=== PATIENT | male | born 1985 | race African-American/Black ===

== ENCOUNTER 2019-11-25 23:49 | Inpatient (IN) | payer OTHER ==
[~2019-11-25] VITALS: Ht 152.4 cm; Wt 56.2 kg
[~2019-11-25 23:49] MED LIST: ASPIRIN 32325 MG/TAB PO; CLARITIN 1010 MG/TAB PO; DECADRON6 MG PO; FLONASEALLERGY NS; KEPPRA750 MG PO; LEXAPRO 10MG10 MG PO; TRUVADA PO; [UNRECOGNIZED DRUG - MIXTURE] TP
[2019-11-26] VITALS (452 sets, daily range): BP systolic 115–1221; BP diastolic 70–95; PULSE 84–97; TEMP 35.7–37.6; O2SAT 73–100
[2019-11-26 00:45] LABS: BASO # 0.1 (0.0-0.2); BASO % 0.4 % (0.0-2.0); EOS # 0.1 (0.0-0.7); EOS % 0.4 % (0-4.0); GRAN # 12.6 (1.4-6.5); GRAN % 83.8 % (42.2-75.2); HEMATOCRIT 40.7 % (42.0-52.0); LYMPH # 1.5 (1.2-3.4); LYMPH % 10.1 % (20.0-51.0); MEAN CELL VOLUME 85 fl (80.0-100.0); MEAN CORPUSCULAR HEMOGLOBIN 29 pg (27.0-31.0); MEAN CORPUSCULAR HGB CONC 34 g/dl (33.0-37.0); MEAN PLATELET VOLUME 9.5 fl (7.4-10.4); MONO # 0.7 (0.1-0.6); MONO % 4.6 % (1.7-9.3); PLATELET COUNT 293 K/mm3 (130-400); RED BLOOD COUNT 4.79 M/mm3 (4.20-5.60); REDCELL DISTRIBUTION WIDTH-CV 14.6 % (11.5-14.5)
[2019-11-26 00:49] LABS: ARTERIAL BLD GAS O2 SATURATION 98.3 % (92-100); ARTERIAL BLD GAS TCO2 CT 25.5; ARTERIAL BLOOD GAS BASE EXCESS -3.4 (-2-2); ARTERIAL BLOOD GAS HCO3 23.9 meq/L (22-26); ARTERIAL BLOOD GAS PCO2 51.5 mmHg (35-45); ARTERIAL BLOOD GAS pH 7.28 (7.35-7.45)
[2019-11-26 00:50] LABS: ARTERIAL BLOOD GAS PO2 136.1 mmHg (80-100)
[2019-11-26 00:56] LABS: ALANINE AMINOTRANSFERASE 31 U/L (4-49); ALBUMIN 4.3 gm/dL (3.5-5.0); ALKALINE PHOSPHATASE 60 U/L (50-136); ANION GAP 11 mmol/L (7-16); AST,SGOT 31 U/L (15-37); BILIRUBIN,TOTAL 0.3 mg/dL (0.0-1.0); BLOOD UREA NITROGEN 12 mg/dL (9-20); CALCIUM 8.8 mg/dL (8.4-10.2); CARBON DIOXIDE 25 mmol/L (22-30); CHLORIDE 104 mmol/L (98-107); CREATINE KINASE 174 U/L (55-170); CREATININE, serum 0.89 (0.66-1.25); GLUCOSE 198 mg/dL (74-106); POTASSIUM 3.9 mmol/L (3.4-5.0); SODIUM 140 mmol/L (137-145); TOTAL PROTEIN 8.8 gm/dL (6.4-8.2)
[2019-11-26 01:06] LABS: INR 1.1 (0.8-3.0); PROTHROMBIN TIME 11.9 SECONDS (9.7-12.8)
[2019-11-26 01:28] LABS: TROPONIN-I < 0.012 ng/mL (0.000-0.035)
[2019-11-26 02:37] LABS: ARTERIAL BLD GAS O2 SATURATION 98.5 % (92-100); ARTERIAL BLD GAS TCO2 CT 30.7; ARTERIAL BLOOD GAS HCO3 27.9 meq/L (22-26)
[2019-11-26 02:38] LABS: ARTERIAL BLOOD GAS PCO2 91.6 mmHg (35-45); ARTERIAL BLOOD GAS PO2 177.9 mmHg (80-100)
[2019-11-26 03:43] LABS: ARTERIAL BLD GAS O2 SATURATION 96.4 % (92-100); ARTERIAL BLD GAS TCO2 CT 35.6; ARTERIAL BLOOD GAS BASE EXCESS -5.7 (-2-2); ARTERIAL BLOOD GAS HCO3 30.9 meq/L (22-26); ARTERIAL BLOOD GAS PO2 115.1 mmHg (80-100)
[2019-11-26 03:44] LABS: ARTERIAL BLOOD GAS pH 6.92 (7.35-7.45)
[2019-11-26 09:22] LABS: ARTERIAL BLD GAS O2 SATURATION 99.7 % (92-100); ARTERIAL BLD GAS TCO2 CT 17.2; ARTERIAL BLOOD GAS BASE EXCESS -7.2 (-2-2); ARTERIAL BLOOD GAS HCO3 16.4 meq/L (22-26); ARTERIAL BLOOD GAS PCO2 28.3 mmHg (35-45); ARTERIAL BLOOD GAS pH 7.38 (7.35-7.45)
[2019-11-26 09:24] LABS: ARTERIAL BLOOD GAS PO2 213.7 mmHg (80-100)
--- NOTE | 2019-11-26 09:46 | NUR ---
The patient is trached and sedated and is on contact precautions. met with the patient's brother, Charlotte Asencio", to discuss discharge plan. Hackberry moved the patient up to [place] from [place] a week ago to live with him, his , and four children. The patient suffered a stroke in September and was in rehab until early October. Hackberry reports that the patient has been independent with ADLs and has a cane, walker, and wheelchair. Hackberry reports that he has not been able to set the patient up with a PCP here yet. The patient is self pay. Hackberry was provided with a FAA application. Financial Counseling was consulted for Medicaid application. The patient remains sedated at this time and is unable to sign forms. Hackberry reports that the patient does have a DPOA-HC completed and that he is the patient's DPOA-HC. Hackberry only had the patient's General DPOA on him. Hackberry contacted his sister and requested that she email the DPOA-HC to . provided Hackberry with this 's email address and phone number. Hackberry reports that the patient is not and does not have any children. He states that the patient has three siblings: him, Rad (ph#[phone]), and Efe. Hackberry plans to return back to the hospital this afternoon to visit the patient. QUIQUE to continue to follow to ensure a safe discharge.
--- NOTE | 2019-11-26 10:39 | NUR ---
SW received the patient's DPOA-HC, via email, from the patient's sister. SW placed the document in the patient's chart. The patient's DPOA-HC is his brother, Marquizes "Fred."
--- NOTE | 2019-11-26 12:39 | NUR ---
PT is currently resting in bed and appears comfortable. Pt tolerating vent via trach well. PTs vitals WNL. Will continue to monitor
[2019-11-26 15:28] LABS: CALCIUM 9.2 mg/dL (8.4-10.2); CREATININE, serum 0.93 (0.66-1.25); POTASSIUM 3.9 mmol/L (3.4-5.0)
--- NOTE | 2019-11-26 15:47 | NUR ---
Dr. Moreau notified of patients current lactic acid levels. Advised to continue with previously ordered IV fluid therapy.
[2019-11-26 15:56] LABS: MAGNESIUM 1.3 mg/dL (1.6-2.3)
--- NOTE | 2019-11-26 19:05 | NUR ---
RECEIVED REPORT FROM RAYNA SCOTT. PT RESTING EASILY ON CURRENT VENT SETTINGS: TV 450, RR 22 FIO2 30%, PEEP 5. RT AT BEDSIDE FOR ABG. BROTHER AT BEDSIDE DURING REPORT AND UPDATED ON STATUS AND POC. VSS. FC PATENT AND DRAINING TO GRAVITY. SEE GTT FLOWSHEET.
--- NOTE | 2019-11-26 19:15 | NUR ---
Report given to RAYNA Wood
[2019-11-26 19:26] LABS: ARTERIAL BLD GAS O2 SATURATION 98.5 % (92-100); ARTERIAL BLD GAS TCO2 CT 20.8; ARTERIAL BLOOD GAS BASE EXCESS -2.4 (-2-2); ARTERIAL BLOOD GAS HCO3 19.9 meq/L (22-26); ARTERIAL BLOOD GAS PCO2 27.9 mmHg (35-45); ARTERIAL BLOOD GAS pH 7.47 (7.35-7.45)
[2019-11-26 19:27] LABS: ARTERIAL BLOOD GAS PO2 134.6 mmHg (80-100)
--- NOTE | 2019-11-26 19:30 | NUR ---
RT AT BEDSIDE DECREASING VENT RR TO 18 AFTER CALLING ABG RESULTS TO DR LUGO.
[2019-11-27] VITALS (970 sets, daily range): BP systolic 119–134; BP diastolic 76–92; PULSE 62–80; TEMP 37.3–37.4; O2SAT 98–100
[2019-11-27 04:59] LABS: BASO % 0.2 % (0.0-2.0); GRAN # 8.7 (1.4-6.5); GRAN % 74.6 % (42.2-75.2); LYMPH # 2.2 (1.2-3.4); LYMPH % 19.2 % (20.0-51.0); MEAN CELL VOLUME 85 fl (80.0-100.0); MEAN CORPUSCULAR HGB CONC 35 g/dl (33.0-37.0); MEAN PLATELET VOLUME 10.1 fl (7.4-10.4); MONO # 0.7 (0.1-0.6); MONO % 5.7 % (1.7-9.3); PLATELET COUNT 235 K/mm3 (130-400); RED BLOOD COUNT 3.68 M/mm3 (4.20-5.60); REDCELL DISTRIBUTION WIDTH-CV 14.6 % (11.5-14.5)
[2019-11-27 05:06] LABS: HEMATOCRIT 31.2 % (42.0-52.0); MEAN CORPUSCULAR HEMOGLOBIN 30 pg (27.0-31.0)
[2019-11-27 05:07] LABS: CALCIUM 8.7 mg/dL (8.4-10.2); CREATININE, serum 0.98 (0.66-1.25); MAGNESIUM 1.9 mg/dL (1.6-2.3); PHOSPHOROUS 3.8 mg/dL (2.5-4.5); POTASSIUM 3.7 mmol/L (3.4-5.0)
[2019-11-27 05:09] LABS: HEMOGLOBIN 10.9 g/dl (13.5-18.0)
--- NOTE | 2019-11-27 05:16 | NUR ---
PT AWAKE AND NODDING HEAD YES AND NO TO QUESTIONS. PT ATTEMPTING TO MOUTH WORDS TO STAFF. PT COUGHING AGAIN VETN BUT IS ABLE TO FOLLOW RNs INSTRUCTIONS TO TRY AND STAY CALM, NOTED RR TO SLOW DOWN AND WORK WITH THE VENT AT THIS TIME. VSS. TV ON PER PT REQUEST TO LISTEN TO.
[2019-11-27 05:33] LABS: ARTERIAL BLD GAS O2 SATURATION 98.5 % (92-100); ARTERIAL BLOOD GAS BASE EXCESS -2.4 (-2-2); ARTERIAL BLOOD GAS HCO3 20.2 meq/L (22-26); ARTERIAL BLOOD GAS PCO2 28.3 mmHg (35-45); ARTERIAL BLOOD GAS pH 7.47 (7.35-7.45)
[2019-11-27 05:34] LABS: ARTERIAL BLOOD GAS PO2 143.9 mmHg (80-100)
--- NOTE | 2019-11-27 07:10 | NUR ---
SPOKE WITH NURIA, PHARMACISTS ABOUT PT'S HUGE CHANGE IN WEIGHT THIS AM. RAYNA SCOTT FROM YESTERDAY STATES THAT THEY USED THE ADMISSION WEIGHT FROM A STANDING SCALE, THE SAME WEIGHT USED FOR THE SURGERY YESTERDAY FOR PROPOFOL GTT TITRATION SETTINGS. DISCUSSED PT'S NUERO STATUS HAS GREATLY IMPROVED OVER NIGHT, NO CAHNGES IN TITRATION TO PROPOFL OR FENTYNAL LAST NIGHT AND PT AROUSES VERY EASILY TO SMALL NOISES AND ANSWERS QUESTIONS APPROPRIATELY AND ABLE TO EXPRESS NEEDS. ALSO DISUCSSED PT'S HX OF POLYSUBSTANCE ABUSE AND CURRENT VS ARE STABLE. NURIA STATES THAT TO LEAVE PUMP SETTINGS WITH 72.7KG WEIGHT AT THIS TIME SINCE PT APPEARS TO BE TOLERATING AND TO HAVE RAYNA SCOTT DISCUSS WITH DR LUGO THIS AM ABOUT HIS SUGGESTION ON CHANGING THE WEIGHT OR NOT AND HOW LONG HE THINKS PT WILL CONTINUE ON SEDATION. RAYNA SCOTT NOTIFIED OF POC AND DISCUSSION WITH PHARMACIST. REPORT GIVEN TO RAYNA SCOTT AT THIS TIME. VSS.
--- NOTE | 2019-11-27 08:10 | NUR ---
PT bed weight obtained and per Dr. Atkins propofol drip to be updated with new weight at 59.1kg.
--- NOTE | 2019-11-27 09:14 | NUR ---
Initial visit; Patient receptive to prayer and being kept in director of global sales's prayers.
--- NOTE | 2019-11-27 10:22 | NUR ---
Financial Counselor, Isabelle, is working with the patient's brother on [place] Medicaid, [place] Medicaid, and social security disability applications. SW attended clinical rounds. The patient is to start tube feeds today. The patient is scheduled to have a bronch tomorrow morning at 0830. SW to continue to follow.
[2019-11-27 11:48] LABS: ARTERIAL BLD GAS O2 SATURATION 98.8 % (92-100); ARTERIAL BLD GAS TCO2 CT 27.2; ARTERIAL BLOOD GAS BASE EXCESS 2.2 (-2-2); ARTERIAL BLOOD GAS PCO2 37.6 mmHg (35-45); ARTERIAL BLOOD GAS pH 7.46 (7.35-7.45)
[2019-11-27 11:50] LABS: ARTERIAL BLOOD GAS PO2 144.8 mmHg (80-100)
[2019-11-27 19:18] LABS: ARTERIAL BLD GAS O2 SATURATION 97.3 % (92-100); ARTERIAL BLD GAS TCO2 CT 25.1; ARTERIAL BLOOD GAS BASE EXCESS -0.7 (-2-2); ARTERIAL BLOOD GAS HCO3 23.9 meq/L (22-26); ARTERIAL BLOOD GAS PCO2 39.1 mmHg (35-45)
--- NOTE | 2019-11-27 19:29 | NUR ---
1824- Dr. Sheldon notified of patient's BP MAP dropping below 65. Dobutamine drip re-started. Advised to keep MAP above 65.
[2019-11-28] VITALS (841 sets, daily range): BP systolic 113–139; BP diastolic 68–99; PULSE 70–112; TEMP 97.5–100; O2SAT 95–100
[2019-11-28 04:37] LABS: BASO % 0.3 % (0.0-2.0); EOS % 0.6 % (0-4.0); GRAN # 4.7 (1.4-6.5); GRAN % 66.1 % (42.2-75.2); HEMOGLOBIN 10.2 g/dl (13.5-18.0); LYMPH # 1.7 (1.2-3.4); LYMPH % 24.5 % (20.0-51.0); MEAN CELL VOLUME 87 fl (80.0-100.0); MEAN CORPUSCULAR HEMOGLOBIN 30 pg (27.0-31.0); MEAN CORPUSCULAR HGB CONC 34 g/dl (33.0-37.0); MEAN PLATELET VOLUME 10.1 fl (7.4-10.4); MONO # 0.6 (0.1-0.6); MONO % 7.9 % (1.7-9.3); PLATELET COUNT 206 K/mm3 (130-400); RED BLOOD COUNT 3.46 M/mm3 (4.20-5.60); REDCELL DISTRIBUTION WIDTH-CV 14.8 % (11.5-14.5)
[2019-11-28 04:49] LABS: CALCIUM 8.6 mg/dL (8.4-10.2); CREATININE, serum 0.99 (0.66-1.25); MAGNESIUM 1.5 mg/dL (1.6-2.3); PHOSPHOROUS 3.5 mg/dL (2.5-4.5); POTASSIUM 3.4 mmol/L (3.4-5.0)
[2019-11-28 05:37] LABS: ARTERIAL BLD GAS O2 SATURATION 97.6 % (92-100); ARTERIAL BLD GAS TCO2 CT 26.6; ARTERIAL BLOOD GAS BASE EXCESS 0.7 (-2-2); ARTERIAL BLOOD GAS HCO3 25.3 meq/L (22-26); ARTERIAL BLOOD GAS PCO2 40.8 mmHg (35-45); ARTERIAL BLOOD GAS PO2 102.4 mmHg (80-100); ARTERIAL BLOOD GAS pH 7.41 (7.35-7.45)
--- NOTE | 2019-11-28 09:00 | NUR ---
BRONCH PERFORMED BY DR. LUGO. PATIENT TOLERATED WELL.
--- NOTE | 2019-11-28 12:30 | NUR ---
PATIENT TAKEN TO CT. HE TOLERATED THIS WITH NO ISSUE.
--- NOTE | 2019-11-28 12:49 | NUR ---
QUIQUE collaborated with Financial Counselor, Isabelle. Isabelle states that she still needs the patient's SS designee forms and that the patient's brother has not emailed her the signed forms for the Medicaid and Disability application yet. UQIQUE met with the patient and the patient's brother, "Fred". Chester provided QUIQUE with the patient's DPOA for Finances. QUIQUE presented the Release of Information Forms. The patient's brother signed forms. QUIQUE emailed the signed forms, DPOA-HC, and DPOA for Finances to Isabelle. QUIQUE to continue to follow.
--- NOTE | 2019-11-28 19:40 | NUR ---
REPORT GIVEN TO BETH Velasco RN AND UPDATE CALLED TO [facility].
--- NOTE | 2019-11-28 23:02 | NUR ---
PATIENT SLEEPING WILL WAIT FOR ORAL CARE.
[2019-11-29] VITALS (783 sets, daily range): BP systolic 90–147; BP diastolic 56–96; PULSE 81–114; TEMP 97.3–99; O2SAT 90–100
[2019-11-29 04:45] LABS: ARTERIAL BLD GAS O2 SATURATION 97.2 % (92-100); ARTERIAL BLOOD GAS HCO3 21.7 meq/L (22-26); ARTERIAL BLOOD GAS pH 7.33 (7.35-7.45)
[2019-11-29 05:04] LABS: EOS % 0.1 % (0-4.0); GRAN % 82.1 % (42.2-75.2); HEMOGLOBIN 11.2 g/dl (13.5-18.0); LYMPH # 0.9 (1.2-3.4); LYMPH % 12.6 % (20.0-51.0); MEAN CELL VOLUME 86 fl (80.0-100.0); MEAN CORPUSCULAR HEMOGLOBIN 30 pg (27.0-31.0); MEAN CORPUSCULAR HGB CONC 35 g/dl (33.0-37.0); MEAN PLATELET VOLUME 10.3 fl (7.4-10.4); MONO # 0.3 (0.1-0.6); MONO % 4.7 % (1.7-9.3); PLATELET COUNT 229 K/mm3 (130-400); RED BLOOD COUNT 3.73 M/mm3 (4.20-5.60); REDCELL DISTRIBUTION WIDTH-CV 14.6 % (11.5-14.5)
[2019-11-29 05:05] LABS: HEMATOCRIT 32.2 % (42.0-52.0)
[2019-11-29 05:47] LABS: CALCIUM 9.1 mg/dL (8.4-10.2); CREATININE, serum 0.82 (0.66-1.25); MAGNESIUM 1.9 mg/dL (1.6-2.3); PHOSPHOROUS 4.3 mg/dL (2.5-4.5); POTASSIUM 4.1 mmol/L (3.4-5.0)
--- NOTE | 2019-11-29 05:53 | NUR ---
PATIENT HAS NOT BEEN INTUBATED FOR 24 HOURS AND UNQUALIFIES THEM FOR CPAP TRIAL. WHEN SUCTIONING PATIENTS HEART RATE GOES UP INTO THE 150'S.
[2019-11-29 11:40] LABS: T HELPER (CD4) INDUCER CELLS 19.3 % (29.0-59.0)
--- NOTE | 2019-11-29 19:00 | NUR ---
RECEIVED REPORT FROM RAYNA WEAVER. PT SLEEPING BUT AROUSES EASILY. SEE GTT FLOWSHEET. VENT SETTINGS: TV 400, RR 18, FIO2 25%, PEEP 5. NGT WITH TF INFUSING AT 44 ML/HR. FC PATENT AND DRAINING TO GRAVITY. VSS.
[2019-11-30] VITALS (708 sets, daily range): BP systolic 124–135; BP diastolic 82–93; PULSE 75–92; TEMP 97.9–98.9; O2SAT 93–100
[2019-11-30 05:07] LABS: EOS % 0.3 % (0-4.0); GRAN # 6.1 (1.4-6.5); HEMOGLOBIN 11.2 g/dl (13.5-18.0); LYMPH # 1.2 (1.2-3.4); LYMPH % 15.1 % (20.0-51.0); MEAN CELL VOLUME 86 fl (80.0-100.0); MEAN CORPUSCULAR HEMOGLOBIN 29 pg (27.0-31.0); MEAN CORPUSCULAR HGB CONC 34 g/dl (33.0-37.0); MEAN PLATELET VOLUME 9.9 fl (7.4-10.4); MONO # 0.4 (0.1-0.6); MONO % 5.6 % (1.7-9.3); PLATELET COUNT 255 K/mm3 (130-400); RED BLOOD COUNT 3.85 M/mm3 (4.20-5.60); REDCELL DISTRIBUTION WIDTH-CV 14.4 % (11.5-14.5)
[2019-11-30 05:08] LABS: HEMATOCRIT 33.2 % (42.0-52.0)
[2019-11-30 05:18] LABS: CALCIUM 9.2 mg/dL (8.4-10.2); CREATININE, serum 0.87 (0.66-1.25); POTASSIUM 4.2 mmol/L (3.4-5.0)
[2019-11-30 05:41] LABS: ARTERIAL BLD GAS O2 SATURATION 98.3 % (92-100); ARTERIAL BLD GAS TCO2 CT 26.3; ARTERIAL BLOOD GAS BASE EXCESS 1.6 (-2-2); ARTERIAL BLOOD GAS HCO3 25.2 meq/L (22-26); ARTERIAL BLOOD GAS PCO2 36.1 mmHg (35-45); ARTERIAL BLOOD GAS PO2 111.2 mmHg (80-100); ARTERIAL BLOOD GAS pH 7.46 (7.35-7.45)
--- NOTE | 2019-11-30 06:13 | NUR ---
PATIENT HAVING BEEN AWAKE FOR MOST OF THE NIGHT AND WAS SLEEPY WHEN GOING TO DO CPAP TRIAL THIS MORNING. RN SAYS THAT PATIENT IS NOT ON MUCH SEDATION. WHEN TRYING THE CPAP TRIAL PATIENT FAILED TO HAVE ADEQUATE TIDAL VOLUMES AND RESPIRATORY RATE. RN WAS NOTIFIED IN ROOM. BETTER TO TRY AGAIN LATER IN THE DAY AFTER HE HAS RESTED.
--- NOTE | 2019-11-30 08:16 | NUR ---
Alert, mouths answers to questions appropriately, indicates understanding and communicates needs. Then, immediately following nurse exiting room, attempts to remove NG tube. Restraints in place.
--- NOTE | 2019-11-30 09:34 | NUR ---
ATTEMPTED WEAN TRIAL PSV8 CPAP5. PT CONTINUES TO GO APNEIC. PT PLACED BACK ON ASSISTS CONTROL.
--- NOTE | 2019-11-30 17:00 | NUR ---
Pt off sedation during day, tolerating CPAP. Pt removed NGT by leaning head toward hands while in soft wrist restraints. Mitts applied. NG reinserted at 50cm CXR obtained, advanced to 60cm following imaging per recommendation of radiologist.
--- NOTE | 2019-11-30 19:05 | NUR ---
RECEIVED REPORT FROM RAYNA GARZON. PT SLEEPING BUT AROUSES EASILY. TOLERATING CURRENT VENT SETTINGS, PT STILL ON SPONTANEOUS MODE AT THIS TIME. VSS. FC PATENT AND DRAINING TO GRAVITY. RECTAL TUBE NOTED. TF IN PROGRESS AT 44ML/HR. SEE GTT FLOWSHEET.
--- NOTE | 2019-11-30 21:26 | NUR ---
SWITCHED PATIENT BACK TO ASSIST CONTROL SETTINGS AND LOWERED TIDAL VOLUME TO [address] DOS SANTOS NOTES. RN WAS NOTIFIED OF CHANGED.
[2019-12-01] VITALS (627 sets, daily range): BP systolic 121–149; BP diastolic 81–110; PULSE 71–94; TEMP 97.7–98.5; O2SAT 91–100
[2019-12-01 05:27] LABS: ARTERIAL BLD GAS O2 SATURATION 98.3 % (92-100); ARTERIAL BLD GAS TCO2 CT 23.6; ARTERIAL BLOOD GAS BASE EXCESS -0.5 (-2-2); ARTERIAL BLOOD GAS HCO3 22.6 meq/L (22-26); ARTERIAL BLOOD GAS PCO2 32.5 mmHg (35-45); ARTERIAL BLOOD GAS PO2 123.1 mmHg (80-100); ARTERIAL BLOOD GAS pH 7.46 (7.35-7.45)
[2019-12-01 05:32] LABS: BILIRUBIN,TOTAL 0.3 mg/dL (0.0-1.0); CALCIUM 9.5 mg/dL (8.4-10.2); CREATININE, serum 0.76 (0.66-1.25); PHOSPHOROUS 3.6 mg/dL (2.5-4.5); POTASSIUM 3.8 mmol/L (3.4-5.0); TOTAL PROTEIN 8.4 gm/dL (6.4-8.2)
[2019-12-01 05:39] LABS: PRE ALBUMIN 29.3 mg/dL (17.6-36.0)
--- NOTE | 2019-12-01 15:00 | NUR ---
Patient pulled out NG. New 14F salem sump placed in left nare. Patient tolerated well. CXR ordered for placement verification.
--- NOTE | 2019-12-01 19:27 | NUR ---
REPORT RECEIVED FROM RAYNA JUAREZ.
--- NOTE | 2019-12-01 20:00 | NUR ---
PT REMIANS ON VENT DOING REALLY WELL ON CPAP MODE. PT IS ALERT AND ORIENTED, ABLE TO COMMUNICATE WITH SIMPLE YES/NO QUESTIONS AND ANSWERS THROUGH NODDING AND SHAKING HEAD. PT ALSO WRITES IN PAPER TO COMMUNICATE NEEDS. PT IS NOW BACK TO AC MODE AND RESTING IN BED. FENTANYL DRIP RUNNING FOR PAIN AND WILL CONTINUE TO MONITOR. [address]AINS IN PL[address] TO PROTECT LINES AND TRACH.
--- NOTE | 2019-12-01 23:41 | NUR ---
PATIENT SLEEPING WILL HOLD ORAL CARE TILL THEN.
[2019-12-02] VITALS (572 sets, daily range): BP systolic 130–161; BP diastolic 94–128; PULSE 74–105; TEMP 98–99; O2SAT 97–100
--- NOTE | 2019-12-02 04:19 | NUR ---
PT COMPLAINING OF PAIN. FENTANYL INCREASED.
--- NOTE | 2019-12-02 05:11 | NUR ---
NO SEDATION VACATION PERFORMED. PT ONLY ON FENTANYL AND ALERT AND ORIENTED, FOLLOWS COMMANDS AND COMMUNICATES APPROPRIATELY THROUGH NODDING/SHAKING HEAD AND WRITING.
[2019-12-02 05:26] LABS: HEMATOCRIT 38.4 % (42.0-52.0); HEMOGLOBIN 12.9 g/dl (13.5-18.0); MEAN CELL VOLUME 86 fl (80.0-100.0); MEAN CORPUSCULAR HEMOGLOBIN 29 pg (27.0-31.0); MEAN CORPUSCULAR HGB CONC 34 g/dl (33.0-37.0); MEAN PLATELET VOLUME 9.7 fl (7.4-10.4); PLATELET COUNT 323 K/mm3 (130-400); RED BLOOD COUNT 4.46 M/mm3 (4.20-5.60)
[2019-12-02 05:34] LABS: ALBUMIN 4.1 gm/dL (3.5-5.0); BILIRUBIN,TOTAL 0.3 mg/dL (0.0-1.0); CALCIUM 9.4 mg/dL (8.4-10.2); CREATININE, serum 0.84 (0.66-1.25); PHOSPHOROUS 3.6 mg/dL (2.5-4.5); POTASSIUM 3.3 mmol/L (3.4-5.0); TOTAL PROTEIN 8.4 gm/dL (6.4-8.2)
[2019-12-02 05:41] LABS: PRE ALBUMIN 35.2 mg/dL (17.6-36.0)
--- NOTE | 2019-12-02 05:49 | NUR ---
PT ON CPAP/WEANING TRIAL. PT A LITTLE BIT SLEEPY PER RT HENCE FENTANYL IS DECREASED. PT DOING WELL SO FAR. WILL CONTINUE TO MONITOR.
[2019-12-02 05:52] LABS: ARTERIAL BLD GAS TCO2 CT 22.5; ARTERIAL BLOOD GAS BASE EXCESS -1.2 (-2-2); ARTERIAL BLOOD GAS HCO3 21.5 meq/L (22-26); ARTERIAL BLOOD GAS pH 7.46 (7.35-7.45)
--- NOTE | 2019-12-02 05:57 | NUR ---
PATIENT PLACED OF CPAP TRIAL THIS AM OF 10/14 RN WAS NOTIFIED OF START OF TRIAL.
--- NOTE | 2019-12-02 08:30 | NUR ---
DR LUGO HERE TO SEE PT. ATTEMPTED TO CALL BROTHER SCOTT, UNABLE TO CONTACT. DC'D FENTANYL GTT PER DR LUGO ORDER. PLACED TO TRACH COLLAR BY RT.
--- NOTE | 2019-12-02 08:31 | NUR ---
PT PLACED ON TRACH COLLAR AT 33% VIA HEATED AEROSAL PER DR. LUGO
--- NOTE | 2019-12-02 10:45 | NUR ---
UP WITH PT. PT ACCIDENTALLY PULLED NG TUBE OUT WHILE WORKING WITH THERAPY. PT STOOD AT SIDE OF BED.
--- NOTE | 2019-12-02 11:45 | NUR ---
REPLACED NG TUBE WITH 14F 60CM AT LEFT NARE.
--- NOTE | 2019-12-02 14:05 | NUR ---
The patient is now Medicaid pending. The patient was placed on a trach coller this morning. PT/OT continue to work with the patient and are monitoring his progress. Karen, IPR Director, approached this SW to inform that therapy notified her of the patient. Karen plans to follow along with the patient. QUIQUE asked the hospitalist for OT/ST to be ordered. SW to continue to follow.
[2019-12-02 14:33] LABS: CLOSTRIDIUM DIFF A/B NEG; CLOSTRIDIUM DIFF A/B INTERP No C.diff present
--- NOTE | 2019-12-02 17:00 | NUR ---
BROTHER MARIA GUADALUPE HERE. UPDATE GIVEN BY DR. GARCIA AT THIS TIME. NURSING GAVE UPDATE AND CLARIFIED/ANSWERED QUESTIONS OF PLAN OF CARE. ENCOURGED HIM TO WAKE THE PATIENT AND LET HIM KNOW HE WAS HERE.
--- NOTE | 2019-12-02 19:00 | NUR ---
PT CURRENTLY ON TRACH COLLAR AT 33% FI02 AND 8LPM. THEREFORE, NO VENT CHARTING HAS BEEN DONE IT IS IN STANDBY AT THIS TIME. PT IS IN NO DISTRESS AT THIS TIME
--- NOTE | 2019-12-02 22:58 | NUR ---
PT RESTING IN BED, DENIES PAIN WHEN ASKED, IT IS HOWEVER NOTED TO HIS BOTTOM IS IRRITATED D/T LOOSE, FREQUENT STOOLS. PT ON TRACH COLLAR SINCE THIS AM WITH CURRENT SPO2 100%. FLEXI-SEAL AND CONDOM CATH REPLACED AND WORKING WELL AT THIS TIME. WILL CONTINUE TO MONITOR, PT STATUS AND UPDATE PROVIDERS NEEDED.
[2019-12-03] VITALS (731 sets, daily range): BP systolic 121–146; BP diastolic 89–100; PULSE 76–110; TEMP 97.7–99.4; O2SAT 84–100
[2019-12-03 05:01] LABS: BASO % 0.2 % (0.0-2.0); EOS # 0.3 (0.0-0.7); EOS % 3.2 % (0-4.0); GRAN # 4.1 (1.4-6.5); GRAN % 50.1 % (42.2-75.2); HEMATOCRIT 39.9 % (42.0-52.0); HEMOGLOBIN 13.8 g/dl (13.5-18.0); LYMPH # 2.7 (1.2-3.4); LYMPH % 32.3 % (20.0-51.0); MEAN CELL VOLUME 86 fl (80.0-100.0); MEAN CORPUSCULAR HEMOGLOBIN 30 pg (27.0-31.0); MEAN CORPUSCULAR HGB CONC 35 g/dl (33.0-37.0); MONO # 0.8 (0.1-0.6); MONO % 10.2 % (1.7-9.3); PLATELET COUNT 322 K/mm3 (130-400); RED BLOOD COUNT 4.65 M/mm3 (4.20-5.60); REDCELL DISTRIBUTION WIDTH-CV 14.2 % (11.5-14.5)
[2019-12-03 05:20] LABS: CALCIUM 9.8 mg/dL (8.4-10.2); CREATININE, serum 0.84 (0.66-1.25); POTASSIUM 3.5 mmol/L (3.4-5.0)
--- NOTE | 2019-12-03 08:30 | NUR ---
Right upper arm PICC intact with sterile dressing change done and insertion site cleansed with chloraprep x 1, chlorhexidine impregnated disk applied, skin prep, stat lock, and tegaderm applied. no signs or symptoms of IV complications noted. no concerns voiced. both caps changed and each lumen flushed with 10ml normal saline with good blood return noted. re-wrapped with an nathaly to protect catheter.
--- NOTE | 2019-12-03 13:30 | NUR ---
Contacted by nursing staff that patient had V-Tach when lying on right side. This am chest x ray reviewed. PICC intact right upper arm with sterile dressing change done with insertion site cleansed with chloraprep x 1, catheter pulled back 3 cm to 2 cm marking on catheter. skin prep, stat lock, chlorhexidine impregnated disk applied, and tegaderm applied. arm re-wrapped with nathaly to protect catheter. continue to monitor.
--- NOTE | 2019-12-03 16:06 | NUR ---
The patient is now awake and able to follow commands. SW met with the patient to introduce oneself and explain role. The patient is on a trach collar. The patient shook his head in understanding. SW to continue to follow.
[2019-12-04] VITALS (560 sets, daily range): BP systolic 120–142; BP diastolic 71–97; PULSE 75–99; TEMP 97.1–100.3; O2SAT 59–100
[2019-12-04 05:15] LABS: HEMATOCRIT 39.1 % (42.0-52.0); HEMOGLOBIN 13.5 g/dl (13.5-18.0); MEAN CELL VOLUME 86 fl (80.0-100.0); MEAN CORPUSCULAR HEMOGLOBIN 30 pg (27.0-31.0); MEAN CORPUSCULAR HGB CONC 35 g/dl (33.0-37.0); MEAN PLATELET VOLUME 9.2 fl (7.4-10.4); PLATELET COUNT 318 K/mm3 (130-400); RED BLOOD COUNT 4.57 M/mm3 (4.20-5.60); REDCELL DISTRIBUTION WIDTH-CV 13.9 % (11.5-14.5)
[2019-12-04 05:38] LABS: CALCIUM 9.5 mg/dL (8.4-10.2); CREATININE, serum 0.83 (0.66-1.25); POTASSIUM 3.2 mmol/L (3.4-5.0)
[2019-12-04 06:15] LABS: EOSINOPHIL 5 % (0-4); LYMPHOCYTE 33 % (20.0-51.0); NEUTROPHILS 53 % (42.0-75.2); PLATELET ESTIMATE NORMAL (NORMAL)
--- NOTE | 2019-12-04 15:53 | NUR ---
QUIQUE contacted the patient's brother, Fred, to follow up and review d/c plan. QUIQUE discussed how IPR may possibly be an option for the patient. Harrison verbalized understanding and states that he would be interested in IPR for the patient, if approved. The patient is self pay, Medicaid pending. Harrison reports that he has a meeting with a woman from the [employer] tomorrow, to see if the patient would qualify for in home services. The patient is to transfer up to the medical floor today. QUIQUE was notified by the patient's RN and ICU Bobbin Doffer that Dr. Ramos wants a follow up evaluation by Dr Rivera, thoracic surgeon at [facility] along with Dr. 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 QUIQUE to haile to follow.
--- NOTE | 2019-12-04 19:45 | NUR ---
Patient arrived from ICU to medical floor via wheelchair at this time. Brother at bedside. Took home personal clothing so that it could be washed. Brother's name is Fred, and phone number [phone]. Requested to be called if there was any problems during the night.
--- NOTE | 2019-12-04 21:15 | NUR ---
Patient assessed at this time. Alert and oriented, and able to make need known. Denies having pain and discomfort at this time. PICC to RUE. Dressing CDI. Denies SOB and dyspnea. Non-cuffed trach in place. Able to verbalize what he needs. Drinking and eatting well. Occasional cough with thick sputum. LS CTA. Respirations even and unlabored. RT put on humidified oxygen for moisture this shift. HRR. Telemetry in place. Capillary refill less than 3 seconds. Non-tenting skin turgor. BSAx4. Abdomen soft and non-tender. No edema. Patient does have mild weakness to right side from previous CVA. Voices no questions, needs, or concerns at this time. Resting in bed with call light within reach. High fall risk precautions in place.
[2019-12-05] VITALS (8 sets, daily range): BP systolic 113–129; BP diastolic 70–87; PULSE 82–96; TEMP 97.9–99.3
--- NOTE | 2019-12-05 05:21 | NUR ---
Patient has been resting in bed with call light within reach. Voices no questions, needs, or concerns at this time.
--- NOTE | 2019-12-05 11:29 | NUR ---
Pt awake and alert upon entry, no C/O pain at this time, shift assessments complete, left Pt call light in reach, bed in lowest position.
--- NOTE | 2019-12-05 13:48 | NUR ---
Primary nurse was assisted with [id number] patient care by [facility] AD[employer] student Anya Kuamri and [facility] instructor Lesly Lepe RN-BC.
--- NOTE | 2019-12-05 16:29 | NUR ---
Vice President Industrial Relations collaborated with Karen, IPR Director who advised she could not accept referral at this time.
--- NOTE | 2019-12-05 19:06 | NUR ---
Pt rested in the room today, walked in the hallway with Phy Therapy, no C/O pain throughout the day. VS have remained stable.
--- NOTE | 2019-12-05 20:45 | NUR ---
Patient assessed at this time. Alert and oriented x 4, and able to make needs known. Denies having pain and discomfort at this time. PICC to RUE. Dressing CDI. Denies SOB and dyspnea. Has trach with humidified oxygen. LS CTA in upper lobes, diminished in lower lobes. Respirations even and unlabored. Occasional moist cough. HRR. Telemetry in place. Capillary refill less than 3 seconds. Non-tenting skin turgor. BSAx4. Abdomen soft and non-tender. No edema. Patient voices no questions, needs, or concerns at this time. Resting in bed with call light within reach.
[2019-12-06] VITALS (9 sets, daily range): BP systolic 118–132; BP diastolic 74–97; PULSE 83–121; TEMP 97.9–99.8
--- NOTE | 2019-12-06 05:41 | NUR ---
Patient has denied pain and discomfort this shift. Has voiced no questions, needs, or concerns this shift. Resting in bed with call light within reach.
[2019-12-06 06:17] LABS: HEMATOCRIT 39.9 % (42.0-52.0); HEMOGLOBIN 13.9 g/dl (13.5-18.0); MEAN CELL VOLUME 84 fl (80.0-100.0); MEAN CORPUSCULAR HEMOGLOBIN 29 pg (27.0-31.0); MEAN CORPUSCULAR HGB CONC 35 g/dl (33.0-37.0); MEAN PLATELET VOLUME 9.6 fl (7.4-10.4); PLATELET COUNT 411 K/mm3 (130-400); RED BLOOD COUNT 4.77 M/mm3 (4.20-5.60); REDCELL DISTRIBUTION WIDTH-CV 13.7 % (11.5-14.5)
[2019-12-06 06:27] LABS: CALCIUM 9.7 mg/dL (8.4-10.2); CREATININE, serum 0.85 (0.66-1.25); POTASSIUM 3.8 mmol/L (3.4-5.0)
--- NOTE | 2019-12-06 06:40 | NUR ---
Report with RAYNA Myles. Pt resting in bed with eyes closed. Resp even and unlabored. Call light in reach.
--- NOTE | 2019-12-06 08:30 | NUR ---
Assessment complete. Pt sitting up in bed, A&O x 4, denies pain at this time. Pt has coughing episode at this time, non-productive and settles while in room. No further needs reported. Call light in reach.
[2019-12-06 08:32] LABS: EOSINOPHIL 1 % (0-4); LYMPHOCYTE 42 % (20.0-51.0); NEUTROPHILS 54 % (42.0-75.2); PLATELET ESTIMATE INCREASED (NORMAL)
--- NOTE | 2019-12-06 12:00 | NUR ---
Pt back to room following fall in hallway with PT. Pt denies dizziness or pain at this time. Heart rate slightly tachy but decreasing as pt rests. Other VSS. No needs reported. Call light in reach.
--- NOTE | 2019-12-06 18:15 | NUR ---
Pt resting in bed, brother at bedside, denies pain or needs at this time. Call light in reach.
--- NOTE | 2019-12-06 19:45 | NUR ---
Patient assessed at this time. Alert and oriented x 4, and able to make needs known. Denies having pain and discomfort at this time. PICC to RUE. Dressing CDI. Denies SOB and dyspnea. LS CTA. Respirations even and unlabored. Tolerating trach well. Tachycardia. Telemetry in place: sinus tach. Capillary refill less than 3 seconds. Non-tenting skin turgor. BSAx4. Abdomen soft and non-tender. No edema. Voices no questions, needs, or concerns at this time. Resting in bed with call light within reach.
[2019-12-07 05:41] VITALS: BP 115/71; PULSE 91; TEMP 98.3
--- NOTE | 2019-12-07 05:54 | NUR ---
Patient has denied having pain and discomfort this shift. Has voiced no questions, needs, or concerns. Resting in bed with call light within reach.
[2019-12-07 08:58] LABS: BASO % 0.4 % (0.0-2.0); EOS # 0.1 (0.0-0.7); EOS % 1.7 % (0-4.0); GRAN # 4.5 (1.4-6.5); GRAN % 57.8 % (42.2-75.2); HEMATOCRIT 40.9 % (42.0-52.0); HEMOGLOBIN 14.1 g/dl (13.5-18.0); LYMPH # 2.2 (1.2-3.4); LYMPH % 28.1 % (20.0-51.0); MEAN CELL VOLUME 85 fl (80.0-100.0); MEAN CORPUSCULAR HEMOGLOBIN 29 pg (27.0-31.0); MEAN CORPUSCULAR HGB CONC 35 g/dl (33.0-37.0); MONO # 0.6 (0.1-0.6); MONO % 8.1 % (1.7-9.3); PLATELET COUNT 387 K/mm3 (130-400); REDCELL DISTRIBUTION WIDTH-CV 13.8 % (11.5-14.5)
[2019-12-07 09:21] LABS: CALCIUM 9.7 mg/dL (8.4-10.2); CREATININE, serum 0.91 (0.66-1.25); POTASSIUM 4.1 mmol/L (3.4-5.0)
[2019-12-07 12:11] VITALS: BP 105/63; PULSE 101; TEMP 98.4
--- NOTE | 2019-12-07 15:24 | NUR ---
QUIQUE informed patient will need information in regards to HH services due to discharging home today or tomorrow. QUIQUE contacted by nurse stating that patient will need HH services due to continued education of trach. QUIQUE provided HH documemtation choices to patient and thoroughly explained HH agencies services. Patient stated that he would like to think about which one he would like to go with. SW provided information on SW continuing to follow up on 10/07/19 due to potential discharge on that date. Patient provided that he will have a choice made by then. SW will continue to follow.
[2019-12-07 15:37] VITALS: BP 118/72; PULSE 103; TEMP 98.8
[2019-12-07 19:09] VITALS: BP 106/64; PULSE 101; TEMP 99.1
--- NOTE | 2019-12-07 19:36 | NUR ---
Report given to RAYNA Miller.
--- NOTE | 2019-12-07 20:00 | NUR ---
At time of assessment, patient is resting in bed but easily arouses to voice. Trach appears clean with no signs of irritation or inflammation. Patient has no complaints of pain and no edema is present. HR is tachy but regular. Right sided hand margarine maker is weaker than left, due to CVA residual. No new concerns at this time; Will continue to monitor.
[2019-12-07 23:19] VITALS: BP 111/70; PULSE 84; TEMP 98.6
--- NOTE | 2019-12-08 03:03 | NUR ---
Patient has been resting peacefully with no complaints. No new concerns; will continue to monitor.
[2019-12-08 03:07] VITALS: BP 107/74; PULSE 88; TEMP 98.7
[2019-12-08 07:14] LABS: HEMATOCRIT 38.9 % (42.0-52.0); HEMOGLOBIN 13.4 g/dl (13.5-18.0); MEAN CELL VOLUME 85 fl (80.0-100.0); MEAN CORPUSCULAR HEMOGLOBIN 29 pg (27.0-31.0); MEAN CORPUSCULAR HGB CONC 34 g/dl (33.0-37.0); MEAN PLATELET VOLUME 9.7 fl (7.4-10.4); PLATELET COUNT 362 K/mm3 (130-400); RED BLOOD COUNT 4.59 M/mm3 (4.20-5.60); REDCELL DISTRIBUTION WIDTH-CV 13.8 % (11.5-14.5)
[2019-12-08 07:35] LABS: ALBUMIN 4.1 gm/dL (3.5-5.0); BILIRUBIN,TOTAL 0.3 mg/dL (0.0-1.0); CALCIUM 9.8 mg/dL (8.4-10.2); CREATININE, serum 1.04 (0.66-1.25); MAGNESIUM 1.9 mg/dL (1.6-2.3); PHOSPHOROUS 4.4 mg/dL (2.5-4.5); POTASSIUM 3.9 mmol/L (3.4-5.0)
[2019-12-08 07:42] LABS: PRE ALBUMIN 35.1 mg/dL (17.6-36.0)
[2019-12-08 07:52] VITALS: BP 113/65; PULSE 94; TEMP 98.3
[2019-12-08] MEDS ORDERED: PROAIR HFA0.09 MG/AC IH (08:53)
[2019-12-08] MEDS ORDERED: LIORESAL 1010 MG/TAB PO (08:53)
[2019-12-08] MEDS ORDERED: PREDNISONE10 MG PO (08:57)
[2019-12-08 11:33] LABS: BAND 3 % (0-10); METAMYELOCYTE 2 % (0-0); NEUTROPHILS 44 % (42.0-75.2); PLATELET ESTIMATE NORMAL (NORMAL)
[2019-12-08 11:38] LABS: LYMPHOCYTE 43 % (20.0-51.0)
--- NOTE | 2019-12-08 11:39 | NUR ---
QUIQUE attended clinical rounds. The patient would be ready to d/c today. QUIQUE contacted Dr. Ramos to inquire what home equipment he would recommend for the patient with his trach care. Dr. Ramos recommends a humidifier, suction, and cleaning supplies. QUIQUE informed the clinical team and RN. The patient's brother, Fred, is coming in today for trach education. The patient is in need of a PCP and PT is recommending outpatient PT. The patient is self pay, Medicaid pending. QUIQUE contacted the patient's brother, Fred, to discuss the equipment, a PCP, and outpatient PT. Forreston was agreeable with the patient getting his equipment at [facility] and getting established at [facility] [place]. Fred was also interested in outpatient PT at [facility] on . QUIQUE contacted and secured the patient an appointment at [facility] on 01/01 at 1030. QUIQUE informed the self contained behavior unit teacher and provided a registration packet in the patient's d/c folder. QUIQUE contacted [facility] on tz and secured the patient and outpatient PT appointment on 12/10 at 1000. QUIQUE informed the self contained behavior unit teacher of appointment. QUIQUE contacted and faxed the patient's trach supply order to Fara at [facility]. Fara reports that they do not have any Respiratory Therapists on staff today and that the RTs are the ones that have to set up the trach supplies. She states that their RT will be on tomorrow and will be able to set it up. QUIQUE updated the clinical team. His RN reports that she would not feel comfortable with the patient going home without a suction. Plan is for the patient to d/c tomorrow. QUIQUE updated the patient and his brother. QUIQUE staffed with Financial Counselor, Isabelle. Isabelle requests signatures from the patient, since he is now alert and oriented and able to sign for the Medicaid and FAA. QUIQUE met with the patient and his brother. The patient signed forms. QUIQUE to email these back to Isabelle. The patient's brother is now completing the FAA for QUIQUE to send to [facility] and [facility] on [address]. QUIQUE to continue to follow.
[2019-12-08 11:55] VITALS: BP 123/84; PULSE 102; TEMP 97.9
--- NOTE | 2019-12-08 13:30 | NUR ---
The patient's brother, Fred, completed the FAA and provided it to QUIQUE. QUIQUE emailed the completed form to Financial Counseling. QUIQUE faxed the FAA to [facility].
[2019-12-08 17:49] VITALS: BP 112/68; PULSE 94; TEMP 97.8
--- NOTE | 2019-12-08 18:44 | NUR ---
Pt had an uneventful day. SW did attempt to get medical supplies, however, was not able to procure a trach humidified nor a suction. Did do pt and family teaching for Trach care and cleaning. Pt's brother did very well, and was successful in changing the trach collar, cleaning the trach, and suctioning. No other concerns.
[2019-12-08 19:05] VITALS: BP 122/83; PULSE 104; TEMP 99.3
--- NOTE | 2019-12-08 20:00 | NUR ---
Assessment complete at this time. Patient is alert and oriented with no complaints of pain and no edema. Patient expresses concern for wanting to go home. Heart rate is tachy at 94 bpm with a regular rhythm and lungs are clear. Trach is clean with no evidence of irritation beneath the collar. No new concerns, will continue to monitor.
[2019-12-08 22:57] VITALS: BP 115/77; PULSE 83; TEMP 98.2
[2019-12-09 03:24] VITALS: BP 107/82; PULSE 96; TEMP 98
--- NOTE | 2019-12-09 05:11 | NUR ---
Patient has slept throughout the night with zero complaints.
--- NOTE | 2019-12-09 06:40 | NUR ---
appears to be sleeping, bedside shift report received from RAYNA Miller
[2019-12-09 07:57] VITALS: BP 126/80; PULSE 95; TEMP 98.2
--- NOTE | 2019-12-09 08:15 | NUR ---
awake and watching TV, full assessment completed, see interventions for further info, breakfast delivered, denies needs
--- NOTE | 2019-12-09 09:41 | NUR ---
appears to be dozing, in bed with eyes closed, resp quiet and easy
--- NOTE | 2019-12-09 09:44 | NUR ---
Fara, at [facility], reports that their RT will be able deliver and set up the patient's equipment today. She states that they just need another physician order form signed by the PA. Fara faxed the form to the medical unit. The PA, Yumiko, signed form and QUIQUE faxed the form back to [facility]. QUIQUE contacted the patient's brother, Fred, and coordinated a time that he can be here for [facility] to deliver the equipment and provide education. Fred plans to be at the hospital at 1300. QUIQUE notified Fara at [facility]. The patient's brother requested that QUIQUE fax the patient's DPOA-HC and DPOA for finances to [facility] [employer] [facility]. QUIQUE to do this. The patient is to discharge back home with his brother today, 12/08, with outpatient PT at [facility] on [address]. QUIQUE faxed the patient's orders to [facility] on [address]. No additional needs at this time.
--- NOTE | 2019-12-09 10:49 | NUR ---
ambulating in esteban with physical therapy
[2019-12-09 11:53] VITALS: BP 107/74; PULSE 99; TEMP 98.7
--- NOTE | 2019-12-09 12:08 | NUR ---
up in chair watching TV, denies pain or needs
--- NOTE | 2019-12-09 13:19 | NUR ---
sitting up in bed eating lunch, [facility] in to deliver portable suction
--- NOTE | 2019-12-09 14:52 | NUR ---
discharge instructions given to patient and his brother, verbalizes understanding, discharged per WC
== END 2019-12-09 14:52 | disposition home or self-care (01) | DRG 4 ==
LOC: COL.ER 23:49 → ICU 11-26 07:33 → MEDICAL 12-04 20:16
PROVIDERS: Emergency Medicine; Internal Medicine Pulmonary Disease; Otolaryngology; Physician Assistant; Student in an Organized Health Care Education/Training Program; ADMIT Hospitalist
PROC: 5A1955Z Respiratory Ventilation, Greater than 96 Consecutive Hours (ICD-10-PCS; 2019-11-26)
PROC: 0B110F4 Bypass Trachea to Cutaneous with Tracheostomy Device, Open Approach (ICD-10-PCS; principal; 2019-11-26 05:45)
PROC: 0BJ08ZZ Inspection of Tracheobronchial Tree, Via Natural or Artificial Opening Endoscopic (ICD-10-PCS; 2019-11-28)
DX: A41.9 Sepsis, unspecified organism (principal); J96.01 Acute respiratory failure with hypoxia; J96.02 Acute respiratory failure with hypercapnia; J69.0 Pneumonitis due to inhalation of food and vomit; B20 Human immunodeficiency virus [HIV] disease; I69.951 Hemiplegia and hemiparesis following unspecified cerebrovascular disease affecting right dominant side; J39.8 Other specified diseases of upper respiratory tract; I10 Essential (primary) hypertension; F32.9 Major depressive disorder, single episode, unspecified; F41.9 Anxiety disorder, unspecified; E83.42 Hypomagnesemia; E87.6 Hypokalemia; D64.9 Anemia, unspecified; Z87.891 Personal history of nicotine dependence; Z20.828 Contact with and (suspected) exposure to other viral communicable diseases
CPT/HCPCS: 99231-AI; 99232-AI; 99233-AI; C1751; C1892; J0330; J0360; J1100; J1644; J2060; J2250; J2543; J2704; J2920; J2930; J3010; J3475; J3480; J7030; J7050; J7120; J7512; Q9967

== ENCOUNTER 2020-03-10 13:46 | Emergency (ER) | payer MEDICAID ==
[~2020-03-10] VITALS: Ht 165.1 cm; Wt 65.9 kg
[2020-03-10 13:53] VITALS: BP 122/83; PULSE 82; TEMP 98.4
== END 2020-03-10 14:30 | disposition home or self-care (01) ==
LOC: COL.ER 13:46
DX: J95.01 Hemorrhage from tracheostomy stoma (principal); Z87.891 Personal history of nicotine dependence; Z79.82 Long term (current) use of aspirin

== ENCOUNTER → 2020-03-10 | Outpatient (RCR) | payer SELFPAY ==
[~2020-03-10] MED LIST changes: +LIORESAL 1010 MG/TAB PO; +PREDNISONE10 MG PO; +PROAIR HFA0.09 MG/AC IH; +RECTICARE5% RC
== END ==
LOC: MKS.ESL.OT → MKS.ESL.PT 12-11 09:55 → MKS.ESL.OT 02-23 13:00
DX: J39.8 Other specified diseases of upper respiratory tract (principal); Z93.0 Tracheostomy status

== ENCOUNTER 2020-08-30 07:14 | Outpatient (CLI) | payer MEDICAID ==
[~2020-08-30] VITALS: Ht 165.1 cm; Wt 75.0 kg
[2020-08-30] VITALS (7 sets, daily range): BP systolic 109–135; BP diastolic 88–94; PULSE 85–97
[~2020-08-30 07:14] MED LIST changes: +[UNRECOGNIZED DRUG - OTHER]
[2020-08-30 09:03] LABS: GLUCOSE,CSF 54 mg/dL (40-70); TOTAL PROTEIN,CSF 46 mg/dL (15-45)
[2020-08-30 09:23] LABS: CSF APPEARANCE CLEAR; CSF COLOR COLORLESS; CSF RBC 271 /mm3 (0-0)
[2020-08-30 09:32] LABS: CSF MONONUCLEAR 92 % (70-100); CSF POLYMORPHONUCLEAR 8 % (0-6)
--- NOTE | 2020-08-30 09:35 | NUR ---
DC instructions reveiwed with pt and his bother. Both express understanding. No c/o headache or dizziness with position changes. Reports back feels stiff upon first standing, but resolves after taking a few steps. Able to transfer from bed to wheelchair in hallway with steady gait. Assisted out to brother's car by WC.
== END 2020-08-30 09:35 | disposition home or self-care (01) ==
LOC: COL.RAD 07:14
PROVIDERS: Psychiatry & Neurology Neurology
DX: A52.3 Neurosyphilis, unspecified (principal); Z86.73 Personal history of transient ischemic attack (TIA), and cerebral infarction without residual deficits; G40.409 Other generalized epilepsy and epileptic syndromes, not intractable, without status epilepticus

== ENCOUNTER 2020-09-07 08:38 | Day surgery (SDC) | payer MEDICAID ==
[2020-09-07] VITALS (7 sets, daily range): BP systolic 137–154; BP diastolic 87–109; PULSE 82–112; TEMP 98.5–99
[~2020-09-07] VITALS: Ht 162.6 cm; Wt 93.4 kg
[2020-09-07] MEDS ORDERED: BIKTARVY 50-201 EACH PO (09:36)
[2020-09-07] MEDS ORDERED: PERCOCET 325 MG1 TA2 PO (14:04)
[2020-09-07] MEDS ORDERED: MOTRIN 600600 MG/TAB PO (14:06)
[2020-09-07] MEDS ORDERED: SSD25 GM TP (14:06)
--- NOTE | 2020-09-07 14:30 | NUR ---
TO RM 1 PER CART FROM PACU. AWAKENS TO VERBAL STIMULI AND FALLS BACK TO SLEEP. T-TUBE IN PLACE. RESPIRATIONS EVEN AND NONLABORED 02 SAT 98ON 2L NC. BROTHER AT BEDSIDE.
--- NOTE | 2020-09-07 14:45 | NUR ---
CONTINUES TO SLEEP QUIETLY.
--- NOTE | 2020-09-07 15:00 | NUR ---
MORE AWAKE AND RECEIVED PEPSI AND BLUEBERRY MUFFIN.
--- NOTE | 2020-09-07 15:15 | NUR ---
ATTEMPTED TO GET UP, BUT C/O TOO MUCH PAIN. C/O INCREASED PAIN AND RECEIVED PERCOCET 1 TAB ORDERED. LAYED BACK DOWN TO LET PAIN MEDICATION WORK.
--- NOTE | 2020-09-07 15:20 | NUR ---
PATIENT STATED HE THOUGHT HE WAS READY TO GET UP. AMBULATED TO BATHROOM WITH BROTHERS STAND BY ASSIST. AMBULAED BACK TO BED AND TOLERATED WELL.
--- NOTE | 2020-09-07 15:35 | NUR ---
RECEIVED DISCHARGE INSTRUCTIONS AND VERBALIZED UNDERSTANDING. DISCONTINUED IV AND INT- CATHETER INTACT.
--- NOTE | 2020-09-07 15:45 | NUR ---
DISCHARGED PER WC BY NURSING STAFF TO PRIVATE CAR IN CARE OF BROTHER CLARK.
== END 2020-09-07 15:53 | disposition home or self-care (01) ==
LOC: SDCO 08:38
DX: A63.0 Anogenital (venereal) warts (principal); D04.5 Carcinoma in situ of skin of trunk; A52.3 Neurosyphilis, unspecified; J45.909 Unspecified asthma, uncomplicated; F32.9 Major depressive disorder, single episode, unspecified; Z20.822 Contact with and (suspected) exposure to COVID-19; Z79.82 Long term (current) use of aspirin; Z79.899 Other long term (current) drug therapy; Z21 Asymptomatic human immunodeficiency virus [HIV] infection status; Z86.73 Personal history of transient ischemic attack (TIA), and cerebral infarction without residual deficits; Z82.49 Family history of ischemic heart disease and other diseases of the circulatory system
CPT/HCPCS: J0690; J1100; J2405; J2704; J3010; J7120